=== PATIENT | male | born 1950 | race Caucasian/White ===

== ENCOUNTER 2017-01-17 11:56 | Emergency (ER) | payer MEDICARE ==
[2017-01-17 12:52] VITALS: BP 130/74
--- NOTE | 2017-01-17 13:11 | UC ---
Skin Complaint HPI - HPI Summary HPI Summary: tick bite x 2 days left lower leg, was removed by the pt. no fever, no chills, no rash - History of Current Complaint Chief Complaint: [employer] Time Seen by Provider: 01/17/17 12:37 Stated Complaint: TICK BITE Hx Obtained From: Patient Onset/Duration: Sudden Onset, Lasting Days - 2, Resolved Timing: Constant Onset Severity: Mild Current Severity: Mild Location: Other - left lower leg Character: Redness Aggravating: Nothing Alleviating: Nothing Associated Signs & Symptoms: Positive: Negative - Allergy/Home Medications Allergies/Adverse Reactions: Allergies Allergy/AdvReac Type Severity Reaction Status Date / Time Ciprofloxacin Allergy Intermediate Hives Verified 01/17/17 12:53 Home Medications: Home Medications Multiple Vitamin [Multivitamins] 1 cap PO DAILY 01/17/17 [History Confirmed 08/24] Review of Systems Constitutional: Negative Skin: Negative Eyes: Negative ENT: Negative Respiratory: Negative Cardiovascular: Negative Gastrointestinal: Negative Genitourinary: Negative Motor: Negative Neurovascular: Negative Musculoskeletal: Negative Neurological: Negative Psychological: Negative All Other Systems Reviewed And Are Negative: Yes PMH/Surg Hx/FS Hx/Imm Hx Previously Healthy: Yes - Surgical History Surgical History: None - Family History Known Family History: Negative: Diabetes - Social History Alcohol Use: None Substance Use Type: None Smoking Status (MU): Never Smoked Tobacco Physical Exam Triage Information Reviewed: Yes Appearance: Well-Appearing, No Pain Distress, Well-Nourished Vital Signs: Initial Vital Signs Temp 98.3 F 01/17/17 12:47 Pulse 60 01/17/17 12:47 Resp 16 01/17/17 12:47 BP 130/74 01/17/17 12:47 Pulse Ox 96 01/17/17 12:47 Vital Signs Reviewed: Yes Eyes: Positive: Conjunctiva Clear ENT: Positive: Normal ENT inspection, Hearing grossly normal, Pharynx normal Neck: Positive: Supple, Nontender, No Lymphadenopathy Respiratory: Positive: Chest non-tender, Lungs clear, Normal breath sounds Cardiovascular: Positive: RRR, No Murmur, Pulses Normal Skin: Positive: Other - tick was removed by the pt. for the left lower leg, mild erythemal of the tick site Course/Dx - Diagnoses Provider Diagnoses: tick bite Discharge - Discharge Plan Condition: Stable Disposition: HOME Prescriptions: DOXYcycline CAP(*) [DOXYcycline 100MG CAP(*)] 200 mg PO ONCE #2 cap Patient Education Materials: Tick Bite (ED) Referrals: Eric Angel MD [Primary Care Provider] - If Needed
== END 2017-01-17 13:13 | disposition home or self-care (01) ==
LOC: UCCORT 11:56
DX: S80.862A Insect bite (nonvenomous), left lower leg, initial encounter (principal); W57.XXXA Bitten or stung by nonvenomous insect and other nonvenomous arthropods, initial encounter; Y93.9 Activity, unspecified; Y99.9 Unspecified external cause status
CPT/HCPCS: 99202; G0463